=== PATIENT | female | born 1995 | race Two or more races ===

== ENCOUNTER 2018-05-09 21:30 | Emergency (ER) | payer SELFPAY ==
[~2018-05-09] VITALS: Ht 167.6 cm; Wt 66.0 kg
[2018-05-09 21:33] VITALS: BP 123/81
== END 2018-05-10 03:43 | disposition left against medical advice (07) ==
LOC: ER 22:12
DX: Z53.21 Procedure and treatment not carried out due to patient leaving prior to being seen by health care provider (principal)